=== PATIENT | female | born 1940 | race Two or more races ===

== ENCOUNTER → 2018-06-22 | Outpatient (CLI) | payer MEDICARE | END | disposition home or self-care (01) | LOC: CFH 09:43 | PROVIDERS: ATTEND Internal Medicine Cardiovascular Disease | DX: I10 Essential (primary) hypertension (principal) | CPT/HCPCS: 93306 ==

== ENCOUNTER 2019-06-12 18:42 | Emergency (ER) | payer MEDICARE ==
[~2019-06-12] VITALS: Ht 157.5 cm; Wt 79.8 kg
[2019-06-12 18:58] VITALS: BP 173/66
--- NOTE | 2019-06-12 19:18 | NUR ---
Patient ambulated steadily into room. Appears well nourished, breathing calmly. No appreciable adventitious breath sounds. Awaiting assessment by provider.
== END 2019-06-12 19:44 | disposition home or self-care (01) ==
LOC: ED 19:38
DX: L50.9 Urticaria, unspecified (principal); T46.5X5A Adverse effect of other antihypertensive drugs, initial encounter; E11.9 Type 2 diabetes mellitus without complications; I10 Essential (primary) hypertension; Y92.89 Other specified places as the place of occurrence of the external cause
CPT/HCPCS: 99281

== ENCOUNTER 2019-06-14 01:37 | Emergency (ER) | payer MEDICARE ==
[~2019-06-14] VITALS: Ht 147.3 cm; Wt 78.7 kg
[2019-06-14] MEDS ORDERED: FAMOTIDINE 20 MG TABLET ONE (02:00)
[2019-06-14] MEDS ORDERED: FAMOTIDINE 20 MG TABLET PO ONE (02:00)
[2019-06-14 04:54] VITALS: BP 160/72
--- NOTE | 2019-06-14 04:58 | NUR ---
Patient/Caregiver given discharge instructions and they have confirmed that they understand the instructions. Patient ambulatory with steady gait.
== END 2019-06-14 05:00 | disposition home or self-care (01) ==
LOC: ED 01:50
DX: L27.0 Generalized skin eruption due to drugs and medicaments taken internally (principal); L50.9 Urticaria, unspecified; I10 Essential (primary) hypertension; E11.9 Type 2 diabetes mellitus without complications
CPT/HCPCS: 99283

== ENCOUNTER 2019-10-11 21:35 | Emergency (ER) | payer MEDICARE ==
[2019-10-11] MEDS ORDERED: OMEP-110 PO (22:03)
[2019-10-11] MEDS ORDERED: ASPI-496 PO (22:03)
[2019-10-11] MEDS ORDERED: SIMV20TA19 PO (22:03)
[2019-10-11] MEDS ORDERED: METF-163 PO (22:03)
[2019-10-11] MEDS ORDERED: CHLO25TA PO (22:03)
[2019-10-11] MEDS ORDERED: LISI-167 PO (22:03)
[2019-10-11] MEDS ORDERED: METO-93 PO (22:04)
[2019-10-11] MEDS ORDERED: ALEN70TA6 PO (22:04)
--- NOTE | 2019-10-11 22:20 | NUR ---
PT HERE FOR INCREASED HTN. PT HAS BEEN TAKING HOME MEDS WITHOUT BP IMPROVING. BP ELEVATED. OTHER VSS. MED REC COMPLETE. FAMILY AT BEDSIDE. MD AT BEDSIDE
[2019-10-11 22:44] LABS: BASOPHILS # (AUTO) 0.02 x10^3/uL (0-0.1); BASOPHILS % (AUTO) 0 % (0-1); EOSINOPHILS # (AUTO) 0.24 x10^3/uL (0-0.4); EOSINOPHILS % (AUTO) 4 % (1-7); LYMPHOCYTES # (AUTO) 1.58 x10^3/uL (1-3.4); LYMPHOCYTES % (AUTO) 26 % (22-44); MD NO; MEAN CORPUSCULAR HEMOGLOBIN 32.3 pg (27.0-34.8); MEAN CORPUSCULAR HGB CONC 34.1 g/dL (32.4-35.8); MEAN CORPUSCULAR VOLUME 94.9 fL (80-100); MEAN PLATELET VOLUME 9.1 fL (7.4-10.4); MONOCYTES # (AUTO) 0.45 x10^3/uL (0.2-0.8); MONOCYTES % (AUTO) 8 % (2-9); NEUTROPHILS # (AUTO) 3.73 x10^3/uL (1.8-6.8); NEUTROPHILS % (AUTO) 62 % (42-75); PLATELET COUNT 230 x10^3/uL (130-400); RED BLOOD COUNT 4.33 x10^6/uL (3.82-5.3)
[2019-10-11 22:51] LABS: ALBUMIN 3.9 g/dL (3.4-5.0); ANION GAP 6 mmol/L (5-15); CALCIUM 9.7 mg/dL (8.5-10.1); CHLORIDE 104 mmol/L (98-107); CREATININE 0.55 mg/dL (0.55-1.02)
[2019-10-11 22:55] LABS: TROPONIN I < 0.015 ng/mL (0.000-0.045)
--- NOTE | 2019-10-11 23:26 | NUR ---
PT AMBULATED TO THE BATHROOM.
[2019-10-12] VITALS: BP 184/86
--- NOTE | 2019-10-12 00:08 | NUR ---
Patient given discharge instructions and they have confirmed that they understand the instructions. Patient ambulatory with steady gait.
== END 2019-10-12 00:10 | disposition home or self-care (01) ==
LOC: ED 22:59
DX: F41.1 Generalized anxiety disorder (principal); I10 Essential (primary) hypertension; R06.02 Shortness of breath; E11.9 Type 2 diabetes mellitus without complications
CPT/HCPCS: 36415; 80048; 82040; 84484; 85025; 93005; 99283